=== PATIENT | female | born 2000 | race Hispanic/Latino ===

== ENCOUNTER 2024-11-30 15:21 | Emergency (ER) | payer BC ==
[~2024-11-30] VITALS: Ht 157.5 cm; Wt 72.6 kg
[2024-11-30 16:28] VITALS: PULSE 93; RESP 16; TEMP 98.6; O2SAT 98
== END 2024-11-30 16:25 | disposition home or self-care (01) ==
LOC: ER 15:58
DX: T24.212A Burn of second degree of left thigh, initial encounter (principal); X15.8XXA Contact with other hot household appliances, initial encounter; Y92.89 Other specified places as the place of occurrence of the external cause
CPT/HCPCS: 99282